=== PATIENT | male | born 1955 | race Hispanic/Latino ===

== ENCOUNTER 2017-08-13 20:09 | Emergency (ER) | payer BC ==
[2017-08-13 20:11] VITALS: BMI 25.1
[2017-08-13 20:20] VITALS: RESP 18; TEMP 97.8
--- NOTE | 2017-08-13 20:27 | ED PDOC ---
Arrival/HPI - General Chief Complaint: Chest Pain Time Seen by Provider: 08/13/17 20:26 Historian: Patient - History of Present Illness Narrative History of Present Illness (Text): 08/13/17 20:29 A 61 year old male, whose past medical history includes hypertension and psychiatric issues, presents to the emergency department complaining of shortness of breath and chest pain. Patient reports he was ambulating up stairs when he began experiencing symptoms, which last for 10 minutes. Afterwards, pain radiated to left arm, stating it felt "light and shaky". Due to complaints , patient began experiencing anxiety and became concerned. States never experienced these symptoms in the past. Patient denies any chills, abdominal pain, or any other complaints. Notes currently not feeling chest pain or shortness of breath, only anxiety. Also, patient mentions taking anti- depressants. No PMD Past Medical History - Provider Review Nursing Documentation Reviewed: Yes - Cardiac Hx Hypertension: Yes - Psychiatric Hx Substance Use: No - Anesthesia Hx Anesthesia: No Family/Social History - Physician Review Nursing Documentation Reviewed: Yes Family/Social History: CAD/NC Smoking Status: Never Smoked Hx Alcohol Use: Yes Frequency of alcohol use: Socially Hx Substance Use: No Allergies/Home Meds Allergies/Adverse Reactions: Allergies No Known Allergies Allergy (Verified 08/13/17 20:10) Home Medications: Home Meds Medication Instructions Recorded Confirmed RX: No Known Home Med 08/13/17 08/13/17 Review of Systems - Physician Review All systems were reviewed & negative as marked: Yes - Review of Systems Constitutional: absent: Night Sweats Respiratory: SOB Cardiovascular: Chest Pain Gastrointestinal: absent: Abdominal Pain Physical Exam Vital Signs Reviewed: Yes Vital Signs Temp Pulse Resp BP Pulse Ox 08/13/17 20:19 97.8 F 77 18 132/86 97 Temperature: Afebrile Blood Pressure: Normal Pulse: Regular Respiratory Rate: Normal Appearance: Positive for: Well-Appearing Pain Distress: None Mental Status: Positive for: Alert and Oriented X 3 - Systems Exam Head: Present: Atraumatic, Normocephalic Pupils: Present: PERRL Extroacular Muscles: Present: EOMI Respiratory/Chest: Present: Clear to Auscultation, Good Air Exchange. No: Respiratory Distress, Accessory Muscle Use Cardiovascular: Present: Regular Rate and Rhythm, Normal S1, S2. No: Murmurs Abdomen: No: Tenderness, Distention, Peritoneal Signs Upper Extremity: Present: Normal Inspection. No: Cyanosis, Edema Lower Extremity: Present: Normal Inspection. No: Edema Neurological: Present: GCS=15, CN II-XII Intact, Speech Normal Skin: Present: Warm, Dry, Normal Color. No: Rashes Psychiatric: Present: Alert, Oriented x 3, Normal Insight, Normal Concentration Medical Decision Making ED Course and Treatment: 08/13/17 20:35 Impression: 61 year old male with chest pain and shortness of breath. No acute findings on physical exam. Plan: -- EKG -- Labs -- Aspirin -- Urinalysis -- O2 Nasal Cannula -- Reassess and disposition Progress Notes: 08/13/17 21:36 Patient has eloped. - Lab Interpretations Lab Results: 08/13/17 21:05 08/13/17 21:05 Lab Results 08/13/17 21:05: Sodium 148, Potassium 4.0, Chloride 107, Carbon Dioxide 24, Anion Gap 21 H, BUN 14, Creatinine 0.8, Est GFR ( Amer) > 60, Est GFR ( Non-Af Amer) > 60, Random Glucose 73, Calcium 8.7, Magnesium 2.1, Total Bilirubin 0.3, AST 22, ALT 27, Alkaline Phosphatase 59, Lactate Dehydrogenase 314 L, Total Creatine Kinase 68, Troponin I < 0.01, NT-Pro-B Natriuret Pep 36.9 , Total Protein 7.1, Albumin 4.4, Globulin 2.6, Albumin/Globulin Ratio 1.7 08/13/17 21:05: Urine Color Light yellow, Urine Appearance Clear, Urine pH 6.0, Ur Specific [place] <= 1.005, Urine Protein Negative, Urine Glucose (UA) Negative, Urine Ketones Negative, Urine Blood Negative, Urine Nitrate Negative, Urine Bilirubin Negative, Urine Urobilinogen 0.2, Ur Leukocyte Esterase Negative 08/13/17 21:05: APTT 30.9 08/13/17 21:05: WBC 10.4, RBC 4.90, Hgb 16.2, Hct 46.1, MCV 94.1, MCH 33.1, MCHC 35.1, RDW 13.4, Plt Count 200, MPV 10.6, Gran % 54.3, Lymph % (Auto) 38.0 H , Brown % (Auto) 5.3, Eos % (Auto) 1.9, Baso % (Auto) 0.5, Gran # 5.62, Lymph # ( Auto) 3.9 H, Brown # (Auto) 0.6, Eos # (Auto) 0.2, Baso # (Auto) 0.05 - Medication Orders Current Medication Orders: Discontinued Medications Aspirin (Aspirin) 325 mg PO STAT STA Stop: 08/13/17 20:28 Last Admin: 08/13/17 20:53 Dose: 325 mg - Scribe Statement The provider has reviewed the documentation as recorded by the Madyson Youngblood Provider Scribe Attestation: All medical record entries made by the Madyson were at my direction and personally dictated by me. I have reviewed the chart and agree that the record accurately reflects my personal performance of the history, physical exam, medical decision making, and the department course for this patient. I have also personally directed, reviewed, and agree with the discharge instructions and disposition. Disposition/Present on Arrival - Present on Arrival Any Indicators Present on Arrival: No History of DVT/PE: No History of Uncontrolled Diabetes: No Urinary Catheter: No History of Decub. Ulcer: No History Surgical Site Infection Following: None - Disposition Have Diagnosis and Disposition been Completed?: Yes Diagnosis: Chest pain Disposition: ELOPEMENT - ER ONLY Disposition Time: 22:04 Condition: UNKNOWN Discharge Instructions (ExitCare): Chest Pain (ED) Referrals: Allan Thorpe MD [Primary Care Provider] - Follow up with primary Forms: [employer] (Sen[place]alese)
[2017-08-13 21:14] LABS: BASO # 0.05 K/mm3 (0.0-2.0); BASO % 0.5 % (0.0-3.0); EOS # 0.2 (0.0-0.7); EOS % 1.9 % (1.5-5.0); GRAN # 5.62 (1.4-6.5); GRAN % 54.3 % (50.0-68.0); HEMOGLOBIN 16.2 g/dL (14.0-18.0); LYMPH # 3.9 (1.2-3.4); MEAN CELL VOLUME 94.1 fl (80.0-105.0); MEAN CORPUSCULAR HEMOGLOBIN 33.1 pg (25.0-35.0); MEAN CORPUSCULAR HGB CONC 35.1 g/dl (31.0-37.0); MEAN PLATELET VOLUME 10.6 fl (7.0-11.0); MONO # 0.6 (0.1-0.6); MONO % 5.3 % (1.0-6.0); RBC 4.9 10^6/uL (3.5-6.1); RED CELL DISTRIBUTION WIDTH 13.4 % (11.5-14.5); WHITE BLOOD COUNT 10.4 10^3/ul (4.5-11.0)
[2017-08-13 21:17] LABS: URINE APPEARANCE CLEAR (CLEAR); URINE BILIRUBIN NEGATIVE (NEGATIVE); URINE BLOOD NEGATIVE (NEGATIVE); URINE COLOR LIGHT YELLOW (YELLOW); URINE GLUCOSE (UA) NEGATIVE (NEGATIVE); URINE LEUKOCYTE ESTERASE NEGATIVE Leu/uL (NEGATIVE); URINE PROTEIN NEGATIVE mg/dL (<30 mg/dL); URINE UROBILINOGEN 0.2 E.U./dL (<1 E.U./dL)
[2017-08-13 21:23] LABS: ALB/GLOB RATIO 1.7 (1.1-1.8); ALBUMIN 4.4 g/dL (3.0-4.8); ALT/SGPT 27 U/L (7-56); AST/SGOT 22 U/L (17-59); BLOOD UREA NITROGEN 14 mg/dL (7-21); CALCIUM 8.7 mg/dL (8.4-10.5); GFR AFRICAN-AMERICAN > 60; GFR NON-AFRICAN AMERICAN > 60
[2017-08-13 21:35] LABS: B-TYPE NATRIURETIC PEPTIDE 36.9 pg/mL (0-450); TROPONIN I < 0.01 ng/mL
[2017-08-14 01:51] VITALS: BP 129/77; PULSE 75; O2SAT 98
--- NOTE | 2017-08-14 08:46 | CARD ---
APPROVED REPORT EKG Measurement Heart [id number] <Conclusion> Normal sinus rhythm Normal ECG
== END 2017-08-13 21:39 | disposition left against medical advice (07) ==
LOC: ED 20:09
DX: R07.9 Chest pain, unspecified (principal); I10 Essential (primary) hypertension